=== PATIENT | female | born 1960 | race Caucasian/White ===

== ENCOUNTER 2022-06-22 10:03 | Outpatient (CLI) | payer BC, SELFPAY ==
--- NOTE | 2022-06-22 10:15 | MR_ITS ---
[address] [address] Phone:?[phone] Fax:?[phone] Referring Physician Information: Joan Koehler M.D. [id number] [facility] [address] Phone:?[phone] Fax:?[phone] Patient:?Irma Hansen D.O.B:?1960 Sex:?Female Phone:?[phone] [facility] MRN:?[id number] Exam Date:?06/22/2022 ? EXAM: MRI of the RIGHT HIP, without contrast CLINICAL: Right hip pain. COMPARISONS: X-rays dated 06/11/2022. TECHNICAL: MR sequences of the right hip: Axials: T2 FS, PD, PD FS Coronals: PD, T2 Coronal pelvis: T1 and STIR Sagittals: PD and STIR SEDATION: None. CONTRAST: None. FINDINGS: Evaluation of the fat-saturated sequences is relatively limited by artifact. Hip joint: There are postoperative changes of prior total right hip arthroplasty surgery with associated surgical hardware artifact. No evidence of periprosthetic fracture or pathologic periprosthetic signal change. Small volume of fluid is present within the right hip pseudojoint. Fluid collection within the region of the right trochanteric bursa measures up to 6 cm in craniocaudal length as seen on coronal series 2 image 22-24. No additional fluid collections about the right hip joint. Pelvis osseous structures: No suspicious marrow signal alteration or fracture line. Mild changes of arthrosis are seen to involve the inferior sacroiliac joints bilaterally. Minimal, if any changes of arthrosis involving the pubic symphysis. No evidence of osteitis pubis. Myotendinous structures: Gluteus abductors: Mild partial tearing of the distal right gluteus minimus tendon with mild tendinosis/ill-defined partial tearing of the anterior distal right gluteus medius tendon. Adductors: No demonstrable tendinopathy or strain/tear. Pre-pubic aponeurotic complex: Intact, without evidence of common rectus abdominis-adductor longus aponeurosis or pubic plate lesion. Hamstrings: Intact semimembranosus, semitendinosus and biceps femoris tendons, without tendinopathy or tear. Flexors: Intact iliopsoas and rectus femoris, without strain/tear. External rotators: Intact. The ischiofemoral and quadratus femoris spaces are within normal limits. Gluteal aponeurotic fascia and IT band: Unremarkable. Intrapelvic structures: Although evaluation of the intrapelvic structures is limited on this exam, no convincing pelvic mass is identified as visualized. Changes of arthrosis with subchondral reactive marrow edema are seen to involve the left hip joint. Multilevel degenerative changes are seen to involve the imaged lower lumbar spine, not able to be completely evaluated on this dedicated right hip MRI exam. IMPRESSION: 1. Postoperative changes of prior total right hip arthroplasty surgery without evidence of periprosthetic fracture or pathologic periprosthetic signal change. Small volume of fluid within the right hip pseudojoint with an approximately 6 cm fluid collection in the region of the right trochanteric bursa. 2. Mild partial tearing of the distal right gluteus minimus tendon with mild tendinosis/ill-defined partial tearing of the anterior distal right gluteus medius tendon. 3. Mild changes of arthrosis involving the inferior sacroiliac joints bilaterally. 4. Changes of arthrosis involving the left hip joint with multilevel changes of arthrosis involving the imaged lower lumbar spine. JCZ Electronically signed on 06/22/2022 1:33:00 PM by Carlitos Nielson D.O.
== END 2022-06-22 10:04 | disposition home or self-care (01) ==
LOC: MRI 10:04
PROVIDERS: PCP Family Medicine; Visit Provider Family Medicine
DX: M25.551 Pain in right hip (principal); S76.011A Strain of muscle, fascia and tendon of right hip, initial encounter; M16.11 Unilateral primary osteoarthritis, right hip
CPT/HCPCS: 73721

== ENCOUNTER 2022-07-10 13:33 | Outpatient (CLI) | payer BC, SELFPAY ==
--- NOTE | 2022-07-10 13:45 | CRLHL7_ITS ---
For Patients: As a result of the Century Cures Act, medical imaging exams and procedure reports are released immediately into your electronic medical record. You may view this report before your referring provider. If you have questions, please contact your health care provider. INDICATION: Low back pain. TECHNIQUE: Noncontrast sagittal and axial T1, T2, and sagittal STIR sequences are provided. No comparisons. FINDINGS: Mild degenerative marrow signal changes adjacent to the L3-4 endplates. The overall stature, alignment and intrinsic marrow signal within the remainder of the lumbar spine is within normal limits. Conus is normal. L1-2: Mild circumferential disc bulge results in no significant central canal narrowing. Mild bilateral foraminal narrowing. L2-3: Unremarkable. L3-4: Moderate broad-based posterior disc bulge extends approximately 7 millimeters beyond the posterior vertebral body margin with mild bilateral facet arthropathy ligamentum flavum laxity resulting in profound central canal and bilateral lateral recess narrowing. Mild to moderate bilateral foraminal narrowing. L4-5: Moderate to severe left-sided facet arthropathy with mild endplate osteophyte results in severe left lateral recess narrowing with likely compression of the traversing left L5 nerve root. Mild to moderate central canal narrowing with no right foraminal narrowing. Moderate left foraminal narrowing. L5-S1: Left lateral recess disc bulge with endplate osteophyte results in severe left lateral recess narrowing with compression of the traversing left S1 nerve root. No central canal or right foraminal narrowing. Moderate left foraminal narrowing. IMPRESSION: 1. Profound central canal narrowing at L3-4 with crowding of the nerve roots cephalad to this level. 2. Severe left lateral recess narrowing with moderate left foraminal narrowing at L4-5 and L5-S1. 3. Milder degenerative changes within the remainder of the lumbar spine as outlined above. Dictated by Jorgito Alejandra MD @ 07/11/2022 8:46:25 AM (Electronically Signed)
== END 2022-07-10 13:34 | disposition home or self-care (01) ==
LOC: MRI 13:34
PROVIDERS: PCP Family Medicine; Visit Provider Family Medicine
DX: M54.50 Low back pain, unspecified (principal); M51.26 Other intervertebral disc displacement, lumbar region
CPT/HCPCS: 72148

== ENCOUNTER 2022-09-29 09:01 | Outpatient (CLI) | payer BC, SELFPAY | END 2022-09-29 09:02 | disposition home or self-care (01) | PROVIDERS: PCP Family Medicine; Visit Provider Family Medicine | DX: M54.16 Radiculopathy, lumbar region (principal) | CPT/HCPCS: 64483; J1100; Q9966 ==

== ENCOUNTER → 2022-12-17 23:59 | Outpatient (RCR) | payer BC, SELFPAY | END | disposition home or self-care (01) | PROVIDERS: PCP Family Medicine; Visit Provider Physician Assistant Surgical | DX: M25.562 Pain in left knee (principal); R26.9 Unspecified abnormalities of gait and mobility; Z51.89 Encounter for other specified aftercare | CPT/HCPCS: 97110; 97162 ==

== ENCOUNTER 2023-01-04 18:37 | Outpatient (CLI) | payer BC, SELFPAY ==
--- NOTE | 2023-01-04 19:00 | CRLHL7_ITS ---
For Patients: As a result of the Century Cures Act, medical imaging exams and procedure reports are released immediately into your electronic medical record. You may view this report before your referring provider. If you have questions, please contact your health care provider. INDICATION: Lumbar stenosis. COMPARISON: 07/10/2022. Technique Sagittal T1, T2, and STIR sequences. Axial T1 and T2 weighted sequences. FINDINGS: Normal vertebral body alignment. No fractures. No vertebral body loss of height. No ligamentous injury. No suspicious osseous lesions. Normal conus terminates at L1. T11-12: No spinal canal or neural foraminal narrowing. T12-L1: No spinal canal neural foraminal narrowing. L1-2: Disc degeneration posterior disc bulge. No narrowing of the spinal canal. Mild narrowing of left neural foramen. No narrowing of the right neural foramen. L2-3: Disc degeneration. Posterior disc bulge. No narrowing of spinal canal. No neural foraminal narrowing. L3-4: Disc degeneration. Modic type 1 endplate changes. Posterior disc bulge. Combined with facet arthropathy, there is moderate severe narrowing of the spinal canal. Moderate bilateral foraminal narrowing. Moderate arthropathy. L4-5: Disc degeneration. Loss disc height. Mild Modic type 1 endplate changes. Diffuse disc bulge. Mild narrowing of spinal canal. Left subarticular recess narrowing with potential impingement of the traversing left L5 nerve root. Mild narrowing of the left neural foramen. No narrowing of the right neural foramen. Mild os arthropathy. L5-S1: Disc degeneration. Diffuse disc bulge eccentric to the left. Superimposed left paracentral and foraminal disc herniation measures approximately 4 mm short axis. No narrowing of spinal canal. Impingement of the traversing left S1 nerve root. Moderate narrowing of the left neural foramen. No narrowing of the right neural foramen. Mild facet arthropathy. Degenerative changes of the SI joints. IMPRESSION: 1. Normal alignment. No fractures 2. At L1-2, mild narrowing of the left neural foramina 3. At L3-4, posterior disc bulging. Moderate to severe narrowing of the spinal canal. Moderate narrowing of the bilateral neural foramina 4. At L4-5, mild narrowing of the spinal canal. Left subarticular recess narrowing with potential impingement of the traversing left L5 nerve root. Mild narrowing of the left neural foramina 5. At L5-S1, left paracentral and foraminal disc herniation. Impingement of the traversing left S1 nerve root. Moderate narrowing of the left neuroforamen Dictated by Ignacio Farrar MD @ 01/05/2023 11:22:15 AM (Electronically Signed)
== END 2023-01-04 18:38 | disposition home or self-care (01) ==
LOC: MRI 18:38
PROVIDERS: PCP Family Medicine; Visit Provider Orthopaedic Surgery Orthopaedic Surgery of the Spine
DX: M48.061 Spinal stenosis, lumbar region without neurogenic claudication (principal); M51.26 Other intervertebral disc displacement, lumbar region; M51.27 Other intervertebral disc displacement, lumbosacral region
CPT/HCPCS: 72148

== ENCOUNTER 2023-01-07 11:10 | Outpatient (CLI) | payer BC, SELFPAY | END 2023-01-07 11:11 | disposition home or self-care (01) | PROVIDERS: PCP Family Medicine; Visit Provider Family Medicine | DX: Z01.818 Encounter for other preprocedural examination (principal); R03.0 Elevated blood-pressure reading, without diagnosis of hypertension; E66.9 Obesity, unspecified; I10 Essential (primary) hypertension; Z13.6 Encounter for screening for cardiovascular disorders | CPT/HCPCS: 80053; 80061 ==

== ENCOUNTER 2023-02-22 12:24 | Outpatient (CLI) | payer BC, SELFPAY | END 2023-02-22 12:25 | disposition home or self-care (01) | LOC: FRMREF 12:24 | PROVIDERS: PCP Family Medicine; Visit Provider Family Medicine | DX: Z01.818 Encounter for other preprocedural examination (principal) | CPT/HCPCS: 87081; 87086 ==

== ENCOUNTER 2023-09-13 12:47 | Outpatient (CLI) | payer BC, SELFPAY | END 2023-09-13 12:48 | disposition home or self-care (01) | LOC: FRMREF 12:47 | PROVIDERS: PCP Family Medicine; Visit Provider Family Medicine | DX: I10 Essential (primary) hypertension (principal) | CPT/HCPCS: 87081; 87086 ==

== ENCOUNTER 2024-03-10 13:09 | Outpatient (CLI) | payer BC, SELFPAY | END 2024-03-10 13:10 | disposition home or self-care (01) | PROVIDERS: PCP Family Medicine; Visit Provider Family Medicine | DX: R53.83 Other fatigue (principal); Z13.21 Encounter for screening for nutritional disorder; Z13.29 Encounter for screening for other suspected endocrine disorder | CPT/HCPCS: 82306; 84439; 84443 ==

== ENCOUNTER 2024-03-31 13:30 | Outpatient (RCR) | payer BC, SELFPAY ==
--- NOTE | 2024-03-21 07:57 | URNOTE ---
Prior auth is not required for Hillary ([id number]), 03/16/2024-05/30/2024 Ref #[id number]
[2024-03-21 12:59] VITALS: BP 134/83; PULSE 82; RESP 16; TEMP 36.4; O2SAT 92
[2024-03-21] MEDS: IRON SUCROSE COMPLEX 200 MG in 0.9 % SODIUM CHLORIDE 100 ml 440 MG IVPB (13:32)
[2024-03-21 13:58] VITALS: BP 111/73; PULSE 81; RESP 16; TEMP 36.2; O2SAT 94
[2024-03-21 14:31] VITALS: BP 118/75; PULSE 82; RESP 16; TEMP 36.7; O2SAT 94
[2024-03-24 13:45] VITALS: BP 128/83; PULSE 76; RESP 16; TEMP 36.2; O2SAT 94
[2024-03-24] MEDS: IRON SUCROSE COMPLEX 200 MG in 0.9 % SODIUM CHLORIDE 100 ml 440 MG IVPB (14:00)
[2024-03-24 14:20] VITALS: BP 117/76; PULSE 79; RESP 16; O2SAT 95
[2024-03-29 12:55] VITALS: BP 138/79; PULSE 81; RESP 16; TEMP 36.2; O2SAT 96
[2024-03-29] MEDS: IRON SUCROSE COMPLEX 200 MG in 0.9 % SODIUM CHLORIDE 100 ml 440 MG IVPB (13:20)
[2024-03-29 13:41] VITALS: BP 122/77; PULSE 73; RESP 16; O2SAT 97
[2024-03-29 14:06] VITALS: BP 110/75; PULSE 75; RESP 16; O2SAT 94
[2024-03-31] MEDS: IRON SUCROSE COMPLEX 200 MG in 0.9 % SODIUM CHLORIDE 100 ml 400 MG IVPB (13:56)
[2024-03-31 14:02] VITALS: BP 140/80; PULSE 91; RESP 18; TEMP 36.4; O2SAT 94
[2024-03-31 14:25] VITALS: BP 116/76; PULSE 82; RESP 18; TEMP 36.4; O2SAT 94
[2024-03-31 14:40] VITALS: BP 120/78; PULSE 81; TEMP 36.8
--- NOTE | 2024-03-31 15:42 | ONC.NURNOTE ---
Addendum entered by Radha Sears RN 04/03/24 15:19: Note entered on incorrect chart disregard this entry Original Note: Discussed Hg 7.7 today denies any SOB, palpitations, excessive fatigue instructed patient to phone MD if symptoms develop aranesp given today next appts scheduled
--- NOTE | 2024-04-03 12:08 | ONC.NURNOTE ---
Pt left message to cancel appt on Wednesday for iron sucrose, pt stated in message this week does not work for pt's schedule. [employer] Assistant took pt off of Wednesday and left message for pt to call to reschedule last appt.
== END 2024-09-17 23:59 | disposition home or self-care (01) ==
LOC: CCIC 13:30
PROVIDERS: PCP Family Medicine; Referring Provider Family Medicine; Visit Provider Clinical Nurse Specialist
DX: D50.9 Iron deficiency anemia, unspecified (principal)
CPT/HCPCS: 96365; 96374; J1756

== ENCOUNTER 2024-12-11 15:53 | Outpatient (CLI) | payer BC, SELFPAY | END 2024-12-11 15:54 | disposition home or self-care (01) | PROVIDERS: PCP Family Medicine; Visit Provider Family Medicine | DX: Z00.00 Encounter for general adult medical examination without abnormal findings (principal); R73.03 Prediabetes; I10 Essential (primary) hypertension; E55.9 Vitamin D deficiency, unspecified; Z11.59 Encounter for screening for other viral diseases | CPT/HCPCS: 80053; 80061; 82306; 84443; 86803 ==